=== PATIENT | male | born 1980 | race Caucasian/White ===

== ENCOUNTER 2021-12-23 11:30 | Emergency (ER) | payer BC ==
[~2021-12-23] VITALS: Ht 177.8 cm; Wt 124.7 kg
[2021-12-23 11:35] VITALS: BP_SYST 134
--- NOTE | 2021-12-23 11:51 | NUR ---
Pt presents to the ER BIB self from home. CC Abdominal pain level 6/10, NV, episodes of vomiting x3 past 3-5 days. Pt states ate tuna 5 days ago and has not been able to hold down food since then. Denies constipation, denies headache, pt complains feeling weak. PMHx Thyroid disease
--- NOTE | 2021-12-23 12:28 | NUR ---
# 20 gauge angiocath placed to right hand. Use of asceptic technique. Opsite placed over site. Blood return noted. Blood for lab drawn from site. Flushed with 10 cc of normal saline. No evidence of infiltration noted. Patient tolerated well.
[2021-12-23] MEDS ORDERED: ONDANSETRON HCL 4 MG/2 ML VIAL ONE (12:45)
[2021-12-23] MEDS ORDERED: ONDA-8 TL (13:28)
[2021-12-23 14:00] LABS: BASOPHILS % (AUTO) 0.5 % (0.0-2.0); EOSINOPHILS # (AUTO) 0.1 K/uL (0.0-0.4); MEAN CORPUSCULAR HGB CONC 34 % (32-36); MONOCYTES # (AUTO) 0.3 K/uL (0.0-1.0); NEUTROPHILS # (AUTO) 3.3 K/uL (1.8-7.7); WHITE BLOOD COUNT (AUTO) 4.7 K/uL (4.8-10.8)
--- NOTE | 2021-12-23 14:00 | NUR ---
Pt completed IVF with good tolerance pt states feeling better and requests a return to work note. notified.
[2021-12-23 14:08] LABS: HEMATOCRIT 41.9 % (36-54); HEMOGLOBIN 14.3 g/dL (14.0-18.0); LYMPHOCYTES # (AUTO) 0.9 K/uL (1.0-5.5); LYMPHOCYTES % (AUTO) 19.9 % (20.5-51.5); MEAN CORPUSCULAR HEMOGLOBIN 30 pg (27-31); MEAN CORPUSCULAR VOLUME 88 fL (79.0-98.0); MONOCYTES % (AUTO) 6.9 % (1.7-9.3); NEUTROPHILS % (AUTO) 70.7 % (40.0-70.0); PLATELET COUNT (AUTO) 130 K/uL (130-430); RED BLOOD CELL COUNT(AUTO) 4.75 MIL/uL (4.2-6.2); RED CELL DISTRIBUTION WIDTH 13.9 % (9.0-15.0)
--- NOTE | 2021-12-23 14:24 | NUR ---
Pt returns from radiology, NAD.
[2021-12-23 14:48] LABS: CREATININE 0.79 mg/dL (0.55-1.30); POTASSIUM 4.1 mmol/L (3.5-5.1)
[2021-12-23 14:54] LABS: ALBUMIN 3.3 g/dL (3.4-4.8); TOTAL BILIRUBIN 0.8 mg/dL (0.0-1.0)
--- NOTE | 2021-12-23 18:29 | NUR ---
Patient given written and verbal discharge instructions and verbalizes understanding. ER MD discussed with patient the results and treatment provided. Patient in stable condition. ID arm band removed. IV catheter removed intact and dressing applied, no active bleeding. Rx of Zofran given. Patient educated about nausea. Opportunity for questions provided and answered. Medication side effect fact sheet provided.
[2021-12-23 18:41] VITALS: BP_SYST 116
== END 2021-12-23 18:41 | disposition home or self-care (01) ==
LOC: SED 11:30
DX: R11.2 Nausea with vomiting, unspecified (principal); R55 Syncope and collapse; Z79.899 Other long term (current) drug therapy
CPT/HCPCS: 99283; 80053; 85025; 36415; J2405

== ENCOUNTER 2022-06-06 16:31 | Emergency (ER) | payer BC ==
[~2022-06-06] VITALS: Ht 177.8 cm; Wt 124.7 kg
[~2022-06-06 16:31] MED LIST: ONDA-8 TL
[2022-06-06 16:55] VITALS: BP_SYST 128
[2022-06-06] MEDS ORDERED: IBUP-1971 PO (17:23)
[2022-06-06 18:06] VITALS: BP_SYST 128
== END 2022-06-06 18:06 | disposition home or self-care (01) ==
LOC: SED 16:31
DX: S76.312A Strain of muscle, fascia and tendon of the posterior muscle group at thigh level, left thigh, initial encounter (principal); Z79.899 Other long term (current) drug therapy; X58.XXXA Exposure to other specified factors, initial encounter; Y93.89 Activity, other specified; Y92.89 Other specified places as the place of occurrence of the external cause; Y99.8 Other external cause status
CPT/HCPCS: 99283

== ENCOUNTER 2022-08-23 16:53 | Emergency (ER) | payer BC ==
[~2022-08-23] VITALS: Ht 177.8 cm; Wt 126.1 kg
[~2022-08-23 16:53] MED LIST changes: +IBUP-1971 PO
[2022-08-23 17:03] VITALS: BP_SYST 130
[2022-08-23 19:20] LABS: BASOPHILS % (AUTO) 0.6 % (0.0-2.0); EOSINOPHILS # (AUTO) 0.2 K/uL (0.0-0.4); EOSINOPHILS % (AUTO) 3.7 % (0.0-4.0); HEMATOCRIT 45.8 % (36-54); HEMOGLOBIN 15.7 g/dL (14.0-18.0); LYMPHOCYTES # (AUTO) 1.4 K/uL (1.0-5.5); LYMPHOCYTES % (AUTO) 24.3 % (20.5-51.5); MEAN CORPUSCULAR HEMOGLOBIN 30 pg (27-31); MEAN CORPUSCULAR HGB CONC 34 % (32-36); MEAN CORPUSCULAR VOLUME 87 fL (79.0-98.0); MONOCYTES # (AUTO) 0.4 K/uL (0.0-1.0); MONOCYTES % (AUTO) 7.3 % (1.7-9.3); NEUTROPHILS # (AUTO) 3.7 K/uL (1.8-7.7); NEUTROPHILS % (AUTO) 64.1 % (40.0-70.0); PLATELET COUNT (AUTO) 150 K/uL (130-430); RED BLOOD CELL COUNT(AUTO) 5.27 MIL/uL (4.2-6.2); RED CELL DISTRIBUTION WIDTH 13.4 % (9.0-15.0); WHITE BLOOD COUNT (AUTO) 5.8 K/uL (4.8-10.8)
[2022-08-23 19:23] LABS: CALCIUM 9.1 mg/dL (8.4-11.0); CREATININE 1.05 mg/dL (0.55-1.30)
[2022-08-23 19:27] LABS: TOTAL BILIRUBIN 0.8 mg/dL (0.0-1.0)
--- NOTE | 2022-08-23 19:32 | NUR ---
PT FROM HOME WITH C/O OF RASH TO THE LEFT UPPER CHEST THAT STARTED FRIDAY AFTER PT HAD TATTOO SHADED IN BY DAUGHTER. PT WEARS A BACKPACK TO WORK AND SAYS THE STRAP HAS BEEN RUBBING ON THE TATTOO. PT A&O X4 AND AMBULATORY.
--- NOTE | 2022-08-23 19:45 | NUR ---
DR. CORDOBA WITH PATIENT IN TRIAGE FOR MSE.
[2022-08-23] MEDS ORDERED: IBUP-1970 PO (20:05)
[2022-08-23] MEDS ORDERED: CEPH-548 PO (20:05)
[2022-08-23] MEDS ORDERED: BACI15OI13 TP (20:06)
[2022-08-23 20:25] VITALS: BP_SYST 130
--- NOTE | 2022-08-23 20:25 | NUR ---
Patient given written and verbal discharge instructions and verbalizes understanding. ER DR. CORDOBA discussed with patient the results and treatment provided. Patient in stable condition. ID arm band removed. Rx of bacitracin given. Patient educated on pain management and to follow up with PMD. Pain Scale 0. Opportunity for questions provided and answered. Medication side effect fact sheet provided.
== END 2022-08-23 20:25 | disposition home or self-care (01) ==
LOC: SED 16:53
DX: L03.313 Cellulitis of chest wall (principal); R21 Rash and other nonspecific skin eruption; Z79.899 Other long term (current) drug therapy
CPT/HCPCS: 36415; 80053; 83605; 85025; 87040; 99283